=== PATIENT | male | born 1995 ===

== ENCOUNTER 2021-11-01 18:57 | Observation (INO) | payer SELFPAY ==
[2021-11-01] MEDS ORDERED: NITROGLYCERIN 0.4 MG TAB SUBL SL ONE ×2 (20:27→20:57)
[2021-11-01] MEDS ORDERED: ASPIRIN 81 MG TAB CHEW PO ONE (20:54)
[2021-11-01 20:55] LABS: Basophils % (Auto) 0.6 % (0.0-1.8); Eosinophils # (Auto) 0.1 K/mm3 (0.0-0.4); Eosinophils % (Auto) 0.9 % (0.0-4.3); Hematocrit 41.6 % (35.5-45.6); Hemoglobin 14.4 gm/dl (11.8-15.2); Lymphocytes # (Auto) 1.3 K/mm3 (1.2-5.4); Lymphocytes % (Auto) 22.4 % (13.4-35.0); Mean Corpuscular HGB Conc 35 % (32-34); Mean Corpuscular Volume 91 fl (84-94); Monocytes # (Auto) 0.6 K/mm3 (0.0-0.8); Monocytes % (Auto) 9.9 % (0.0-7.3); Platelet Count 198 K/mm3 (140-440); Red Blood Count 4.55 M/mm3 (3.65-5.03); Red Cell Distribution Width 13.6 % (13.2-15.2)
--- NOTE | 2021-11-01 20:59 | XRay Report ---
CHEST 1 VIEW 11/01/2021 8:40 PM INDICATION / CLINICAL INFORMATION: Left chest pain. COMPARISON: None available. FINDINGS: SUPPORT DEVICES: None. HEART / MEDIASTINUM: The heart size and pulmonary vasculature are normal. The aorta is normal in arlene carmel. LUNGS / PLEURA: No significant pulmonary or pleural abnormality. No pneumothorax. ADDITIONAL FINDINGS: No significant additional findings. IMPRESSION: No acute findings. Signer Name: Carlos Solorzano MD Signed: 11/01/2021 8:55 PM Workstation Name: [id number]
[2021-11-01 21:04] LABS: INR 0.93 (0.87-1.13)
[2021-11-01] MEDS ORDERED: MORPHINE 4 MG/1 ML INJ IV ONE (21:04)
[2021-11-01 21:05] LABS: Partial Thromboplastin Time 30.6 Sec. (24.2-36.6)
[2021-11-01] MEDS ORDERED: MORPHINE 4 MG/1 ML INJ ONE (21:06)
[2021-11-01 21:10] LABS: Alanine Aminotransferase 41 units/L (7-56); Albumin 4.3 g/dL (3.9-5); BUN/Creatinine Ratio 10; Blood Urea Nitrogen 12 mg/dL (9-20); Calcium 8.7 mg/dL (8.4-10.2); Hemolysis Index 16
[2021-11-01] MEDS ORDERED: LIDOCAINE (2%) 20 MG/1 ML VIAL 20 ML MDV INFILTRATI ONE (21:10)
[2021-11-01] MEDS ORDERED: NITROGLYCERIN SYRINGE 3 ML ONE (21:10)
[2021-11-01] MEDS ORDERED: HEPARIN/NS 5000 UNIT/500ML 1,000 ML IR ONE (21:10)
[2021-11-01] MEDS ORDERED: HEPARIN 10,000 UNITS/10 ML VIAL ONE (21:10)
[2021-11-01] MEDS ORDERED: VERAPAMIL 5 MG/2 ML INJ ONE (21:19)
[2021-11-01] MEDS ORDERED: SODIUM CHLORIDE 0.9% 1000 ML 1,000 ML ONE (21:25)
[2021-11-01] MEDS ORDERED: MIDAZOLAM 2 MG/2 ML INJ ONE (21:33)
[2021-11-01] MEDS ORDERED: fentaNYL 100 MCG/2 ML INJ ONE (21:33)
[2021-11-01] MEDS ORDERED: ACETAMINOPHEN 325 MG TAB PO PRN (21:44)
[2021-11-01] MEDS ORDERED: traMADol 50 MG TAB PO PRN ×2 (21:44→21:59)
[2021-11-01] MEDS ORDERED: MORPHINE 4 MG/1 ML INJ IV PRN (21:44)
[2021-11-01] MEDS ORDERED: NITROGLYCERIN 0.4 MG TAB SUBL SL PRN (21:44)
[2021-11-01] MEDS ORDERED: SODIUM CHLORIDE 0.9% 1000 ML 1,000 ML IV SCH (21:45)
--- NOTE | 2021-11-01 21:52 | Emergency Department Report ---
HPI - General Chief Complaint: Chest Pain PUI?: No Time Seen by Provider: 11/01/21 20:04 - HPI HPI: 26yo M p/w chest pain. Patient states his chest pain began at 11 AM "after 8 of 3 piece from [facility]." He said within 15 minutes he began having pressure-like left-sided chest pain which initially radiated across to the right side of his chest but subsequently returned back to the left side and has remained there ever since then. Pain is waxing and waning. No aggravators or alleviators. He complains of mild shortness of breath and dizziness. He denies any nausea vomiting fevers or chills. No musculoskeletal strain or trauma to his chest wall. No cough or URI symptoms. No prior history of similar symptoms in the past. He has not taken any medication prior to arrival. Pain currently 8 out of 10. Patient denies any tobacco alcohol or illicit drug usage. ED Past Medical Hx - Past Medical History Previous Medical History?: No - Surgical History Past Surgical History?: No - Social History Smoking Status: Current Every Day Smoker - Medications Home Medications: Home Medications Medication Instructions Recorded Confirmed Last Taken Type Nicotine [Habitrol] 14 mg TD DAILY #30 patch 11/02/21 Unknown Rx Pantoprazole [Protonix TAB] 40 mg PO QDAY #14 tablet 11/02/21 Unknown Rx oxyCODONE /ACETAMINOPHEN [Percocet 1 tab PO BID PRN #10 11/02/21 Unknown Rx 5/325] ED Review of Systems ROS: Stated complaint: CHEST PAIN/FEVER Other details as noted in HPI Comment: All other systems reviewed and negative Physical Exam - Physical Exam Vital Signs: Vital Signs 11/01/21 11/01/21 11/01/21 19:27 20:20 20:30 Temperature 100.5 F H 97.0 F L Pulse Rate 106 H 103 H 103 H Respiratory 18 18 Rate Blood Pressure 129/69 125/78 Blood Pressure 124/70 [Left] O2 Sat by Pulse 96 98 Oximetry 11/01/21 21:00 Temperature Pulse Rate 97 H Respiratory Rate Blood Pressure 125/73 Blood Pressure [Left] O2 Sat by Pulse Oximetry General: Gen: pt is well appearing, mildly uncomfortable appearing, complaining of persistent chest pain, no drooling no stridor no respiratory distress, breathing unlabored, nontoxic-appearing HEENT: Normocephalic atraumatic pupils equally round and reactive to light ex traocular muscles intact sclera anicteric Neck: Full range of motion, no midline spinal tenderness palpation, no JVD, no carotid bruits, no nuchal rigidity CVS: S1-S2 regular rate and rhythm with no gallops rubs or murmurs, chest wall nontender Pulmonary: Clear to auscultation bilaterally, no wheezes rales or rhonchi Abdomen: Soft nondistended nontender no guarding or rebound tenderness, no palpable deformities or step-offs, normal active bowel sounds, no hepatosplenomegaly, no pulsatile masses : Deferred Extremities: No cyanosis no clubbing no edema, intact distal peripheral pulses, Integumentary: Skin normal, no petechia no purpura no abscess no lacerations no evidence of trauma no evidence of infection Neuro: Patient is awake alert and oriented to person place time situation, mentating well, cranial nerves II through XII intact, no focal neurodeficits, sensation grossly tact Psych: Calm cooperative, mood affect normal ED Course Vital Signs 11/01/21 11/01/21 11/01/21 19:27 20:20 20:30 Temperature 100.5 F H 97.0 F L Pulse Rate 106 H 103 H 103 H Respiratory 18 18 Rate Blood Pressure 129/69 125/78 Blood Pressure 124/70 [Left] O2 Sat by Pulse 96 98 Oximetry 11/01/21 21:00 Temperature Pulse Rate 97 H Respiratory Rate Blood Pressure 125/73 Blood Pressure [Left] O2 Sat by Pulse Oximetry - Consultations Consultation #1: 11/11/2021, 7:49 PM: I telephoned Dr. Crabtree, the on-call interventionalists. Patient's HPI, physical exam, and EKG demonstrating solitary ST elevation in V2 with reciprocal depressions in lead III were discussed at length with him. He was informed that the patient is currently in triage but is awaiting to be brought back to the main emergency department. He has confirmed that he has reviewed the gurdeep ent's electrocardiogram independently. He advises serial electrocardiograms, to provide the patient with sublingual nitroglycerin, and to call him back after the patient has been reassessed within the next 10 minutes. If patient's chest pain persist, patient may need to go to the [facility] but per his verbal report, findings on EKG represent likely benign early repolarization 826 PM: Case again reviewed with the risk developer. Repeat EKG obtained and transmitted to Dr. Crabtree. Findings remain persistent but there were no new ST elevations or newly evolving ST depressions on the patient's EKG. The patient has been given sublingual nitroglycerin but he complains of persistent pressure-like left-sided chest pain. Per his verbal report, given that per my report to him the patient is having continued chest pain and is not improved after sublingual nitroglycerin, he will come to the ER emergently. He request that the Channel Specialist be activated. And the patient will undergo cardiac catheterization to rule out acute ST elevation VA. ED Medical Decision Making - Lab Data Result diagrams: 11/01/21 22:55 11/01/21 22:55 - EKG Data Interpretation: other November 01, 2021: EKG from triage interpreted by me at 1938: Ventricular rate 99 bpm. P waves are present and proceed every QRS complex. Intervals normal. Patient has greater than [address] elevation in lead V2 with no other contiguous ST elevations in any other leads. Patient has solitary less than [address] depression in lead III. No ectopic. No arrhythmia. Normal axis. Sinus rhythm. Patient has no prior EKG available for comparison. Repeat EKG obtained at 2021: Ventricular rate 98 bpm. P waves are present in procedure QRS complex. Intervals normal. Patient has greater than [address] elevation in lead V2 with reciprocal ST depressions in lead III. No ectopic. No arrhythmia. Normal axis. Sinus rhythm. EKG is unchanged in morphology when compared to prior - Radiology Data Radiology results: report reviewed - Medical Decision Making This is a 26-year-old male with no significant past medical history per his report who presents for evaluation of persistent left-sided pressure-like chest pain, onset approximate 15 minutes after consuming fried chicken from [facility]. Vital signs stable. Patient is to have solitary ST elevation in lead V2 and reciprocal ST depressions in lead III. Serial EKGs were performed. Case was reviewed at length with on-call risk developer, . Due to the patient's persistent pressure-like chest pain not improve significantly with nitroglycerin and persistent ST elevation on and depression in the forementioned leads above, the patient will be taken to the Channel Specialist by him. The patient was given sublingual nitroglycerin x2, and full dose aspirin. Case reviewed with on-call hospitalist, Dr. Pacheco. The patient will be admitted to the hospital service under his care Critical Care Time: No Critical care attestation.: If time is entered above; I have spent that time in minutes in the direct care of this critically ill patient, excluding procedure time. ED Disposition Clinical Impression: Chest pain, ST elevation, Abnormal EKG Disposition: ADMITTED INPATIENT Is pt being admited?: Yes Does the pt Need Aspirin: Yes Condition: Stable
[2021-11-01] MEDS ORDERED: HYDROcodone/ACETAMINOPHEN 5-325 MG TAB PO PRN (21:59)
--- NOTE | 2021-11-01 22:05 | Consultation ---
History of Present Illness Consult date: 11/01/21 Consult reason: chest pain (Rule out STEMI) History of present illness: 26-year-old male with no significant past medical history came to the emergency room with episode of chest pain that started around 11:00 this morning after he ate fried chicken. It waxes and wanes but never goes away. Associated with some shortness of breath but no nausea or vomiting he never had these episodes before and never had any chest pain or shortness of breath orthopnea or PND. In the emergency room they obtained an EKG which showed ST elevation in V2 with subtle ST depression in inferior leads. Repeat EKG x2 were unchanged and the pain did not get better even with nitro or morphine. His vitals were stable with normal blood pressure and heart rates between 9o to low 100, saturating well on room air Since the pain was not resolving with any medications we decided to take him to the [facility] after discussing with the patient. Past History Past Medical History: No medical history Past Surgical History: No surgical history Social history: , smoking. denies: alcohol abuse, prescription drug abuse, IV drug use Family history: CAD Medications and Allergies Allergies Allergy/AdvReac Type Severity Reaction Status Date / Time Penicillins Allergy Intermediate Rash Verified 11/01/21 21:23 Active Meds: Active Medications Acetaminophen (Acetaminophen 325 Mg Tab) 650 mg PO Q6H PRN PRN Reason: Pain, Mild (1-3) Hydrocodone Bitart/Acetaminophen (Hydrocodone/Acetaminophen 5-325 Mg Tab) 1 each PO Q4H PRN PRN Reason: Pain, Moderate (4-6) Atorvastatin Calcium (Atorvastatin 40 Mg Tab) 40 mg PO QHS RACHEL Sodium Chloride (Nacl 0.9% 1000 Ml) 1,000 mls @ 100 mls/hr IV DIRECT RACHEL Morphine Sulfate (Morphine 4 Mg/1 Ml Inj) 2 mg IV Q5MIN PRN PRN Reason: Chest Pain unrelieved by NTG Nitroglycerin (Nitroglycerin 0.4 Mg Tab Subl) 0.4 mg SL Q5M PRN PRN Reason: Chest Pain Pantoprazole Sodium (Pantoprazole 40 Mg Tab) 40 mg PO QDAY RACHEL Sodium Chloride (Sodium Chloride 0.9% 10 Ml Flush Syringe) 10 ml IV PRN PRN PRN Reason: LINE FLUSH Tramadol HCl (Tramadol 50 Mg Tab) 50 mg PO Q6H PRN PRN Reason: Pain, Moderate (4-6) Tramadol HCl (Tramadol 50 Mg Tab) 50 mg PO Q4H PRN PRN Reason: Pain, Mild (1-3) Review of Systems Constitutional: no fever, no chills Ears, nose, mouth and throat: no ear pain Cardiovascular: chest pain, no orthopnea, no palpitations, no edema, no syncope, no lightheadedness, no dyspnea on exertion, no paroxysmal nocturnal dyspnea, no claudication Respiratory: shortness of breath, no cough, no cough with sputum, no excessive sputum Gastrointestinal: no abdominal pain, no nausea, no vomiting, no diarrhea Genitourinary Male: no dysuria Musculoskeletal: no neck pain Integumentary: no rash, no pruritis Neurological: no head injury Psychiatric: no depression Endocrine: no palpatations Hematologic/Lymphatic: no easy bruising Physical Examination Vital Signs Temp Pulse Resp BP Pulse Ox 100.5 F H 106 H 18 129/69 96 11/01/21 19:27 11/01/21 19:27 11/01/21 19:27 11/01/21 19:27 11/01/21 19:27 General appearance: mild distress HEENT: Positive: Normocephaly, Mucus Membranes Moist Neck: Positive: neck supple Cardiac: Positive: Reg Rate and Rhythm, S1/S2. Negative: S3 Lungs: Positive: Normal Exam, clear to auscultation Neuro: Positive: Grossly Intact Abdomen: Positive: Soft Skin: Negative: Rash (Tattoos present) Extremities: Present: normal Results 11/01/21 20:29 11/01/21 20:29 Cardiac Enzymes 11/01/21 Range/Units 20:29 AST 36 (5-40) units/L Coagulation 11/01/21 Range/Units 20:29 PT 13.5 (12.2-14.9) Sec. INR 0.93 (0.87-1.13) APTT 30.6 (24.2-36.6) Sec. CBC 11/01/21 Range/Units 20:29 WBC 5.8 (4.5-11.0) K/mm3 RBC 4.55 (3.65-5.03) M/mm3 Hgb 14.4 (11.8-15.2) gm/dl Hct 41.6 (35.5-45.6) % Plt Count 198 (140-440) K/mm3 Lymph # (Auto) 1.3 (1.2-5.4) K/mm3 [place] # (Auto) 0.6 (0.0-0.8) K/mm3 Eos # (Auto) 0.1 (0.0-0.4) K/mm3 Baso # (Auto) 0.0 (0.0-0.1) K/mm3 Comprehensive Metabolic Panel 11/01/21 Range/Units 20:29 Sodium 133 L (137-145) mmol/L Potassium 3.6 (3.6-5.0) mmol/L Chloride 98.2 (98-107) mmol/L Carbon Dioxide 26 (22-30) mmol/L BUN 12 (9-20) mg/dL Creatinine 1.2 (0.8-1.3) mg/dL Glucose 105 H (75-100) mg/dL Calcium 8.7 (8.4-10.2) mg/dL AST 36 (5-40) units/L ALT 41 (7-56) units/L Alkaline Phosphatase 65 (35-129) units/L Total Protein 6.0 L (6.3-8.2) g/dL Albumin 4.3 (3.9-5) g/dL EKG interpretations - Telemetry EKG Rhythm: Sinus Rhythm (With ST elevation in V2 with reciprocal subtle ST depression inferior leads) Assessment and Plan - Patient Problems (1) Chest pain Current Visit: Yes Status: Acute Plan to address problem: Due to the unrelenting nature of the pain despite medications and EKG changes even though does not meet the criteria for a STEMI we took him to the cardiac [facility] after discussing risk benefits of the procedure and alternatives. Coronary angiograms were normal. LV ejection fraction was normal. LVEDP was 13. Chest pain is likely noncardiac will admit for observation and pain control with plan to discharge tomorrow morning.
--- NOTE | 2021-11-01 22:13 | History and Physical Report ---
History of Present Illness Date of examination: 11/01/21 Date of admission: 11/01/21 Chief complaint: Chest pain History of present illness: 26-year-old male with no significant past medical history was brought to the emergency room because of chest pain that started around 11:00 this morning after he ate fried chicken. It waxes and wanes but never goes away. Associated with some shortness of breath but no nausea or vomiting he never had these episodes before and never had any chest pain or shortness of breath orthopnea or PND. In the emergency room they obtained an EKG which showed ST elevation in V2 with subtle ST depression in inferior leads. Repeat EKG x2 were unchanged and the pain did not get better even with nitro or morphine. His vitals were stable with normal blood pressure and heart rates between 9o to low 100. Subsequently Case was discussed with on-call interventional radiology Dr. Garza and patient was taken to the Production Super[facility] and patient is status post cath which shows normal coronaries. Past History Past Medical History: No medical history Past Surgical History: No surgical history Social history: , smoking. denies: alcohol abuse, prescription drug abuse, IV drug use Family history: CAD Medications and Allergies Allergies Allergy/AdvReac Type Severity Reaction Status Date / Time Penicillins Allergy Intermediate Rash Verified 11/01/21 21:23 Active Meds: Active Medications Acetaminophen (Acetaminophen 325 Mg Tab) 650 mg PO Q6H PRN PRN Reason: Pain, Mild (1-3) Hydrocodone Bitart/Acetaminophen (Hydrocodone/Acetaminophen 5-325 Mg Tab) 1 each PO Q4H PRN PRN Reason: Pain, Moderate (4-6) Atorvastatin Calcium (Atorvastatin 40 Mg Tab) 40 mg PO QHS RACHEL Sodium Chloride (Nacl 0.9% 1000 Ml) 1,000 mls @ 100 mls/hr IV DIRECT RACHEL Morphine Sulfate (Morphine 4 Mg/1 Ml Inj) 2 mg IV Q5MIN PRN PRN Reason: Chest Pain unrelieved by NTG Nitroglycerin (Nitroglycerin 0.4 Mg Tab Subl) 0.4 mg SL Q5M PRN PRN Reason: Chest Pain Pantoprazole Sodium (Pantoprazole 40 Mg Tab) 40 mg PO QDAY RACHEL Sodium Chloride (Sodium Chloride 0.9% 10 Ml Flush Syringe) 10 ml IV PRN PRN PRN Reason: LINE FLUSH Tramadol HCl (Tramadol 50 Mg Tab) 50 mg PO Q4H PRN PRN Reason: Pain, Mild (1-3) Review of Systems All systems: negative Cardiovascular: chest pain, shortness of breath Exam - Constitutional Vitals: Temp Pulse Resp BP Pulse Ox 97.0 F L 97 H 18 125/73 98 11/01/21 20:20 11/01/21 21:00 11/01/21 20:20 11/01/21 21:00 11/01/21 20:20 General appearance: Present: no acute distress, well-nourished - EENT Eyes: Present: PERRL ENT: hearing intact, clear oral mucosa - Neck Neck: Present: supple, normal ROM - Respiratory Respiratory effort: normal Respiratory: bilateral: CTA - Cardiovascular Heart Sounds: Present: S1 & S2. Absent: rub, click - Extremities Extremities: pulses symmetrical, No edema Peripheral Pulses: within normal limits - Abdominal General gastrointestinal: Present: soft, non-tender, non-distended, normal bowel sounds Male genitourinary: Present: normal - Integumentary Integumentary: Present: clear, warm, dry - Musculoskeletal Musculoskeletal: gait normal, strength equal bilaterally - Psychiatric Psychiatric: appropriate mood/affect, intact judgment & insight - Neurologic Neurologic: CNII-XII intact, moves all extremities HEART Score - HEART Score Age: < 45 Troponin: Troponin T < 0.010 ng/mL (0.00-0.029) 11/01/21 20:29 Results - Labs CBC & Chem 7: 11/01/21 20:29 11/01/21 20:29 Labs: Laboratory Last Values WBC 5.8 K/mm3 (4.5-11.0) 11/01/21 20: RBC 4.55 M/mm3 (3.65-5.03) 11/01/21 20:29 Hgb 14.4 gm/dl (11.8-15.2) 11/01/21 20:29 Hct 41.6 % (35.5-45.6) 11/01/21 20: MCV 91 fl (84-94) 11/01/21 20:29 MCH 32 pg (28-32) 11/01/21 20: MCHC 35 % (32-34) H 11/01/21 20: RDW 13.6 % (13.2-15.2) 11/01/21 20:29 Plt Count 198 K/mm3 (140-440) 11/01/21 20: Lymph % (Auto) 22.4 % (13.4-35.0) 11/01/21: [place] % (Auto) 9.9 % (0.0-7.3) H 11/01/21: Eos % (Auto) 0.9 % (0.0-4.3) 11/01/21: Baso % (Auto) 0.6 % (0.0-1.8) 11/01/21: Lymph # (Auto) 1.3 K/mm3 (1.2-5.4) 11/01/21: [place] # (Auto) 0.6 K/mm3 (0.0-0.8) 11/01/21: Eos # (Auto) 0.1 K/mm3 (0.0-0.4) 11/01/21: Baso # (Auto) 0.0 K/mm3 (0.0-0.1) 11/01/21: Seg Neutrophils % 66.2 % (40.0-70.0) 11/01/21: Seg Neutrophils # 3.8 K/mm3 (1.8-7.7) 11/01/21: PT 13.5 Sec. (12.2-14.9) 11/01/21: INR 0.93 (0.87-1.13) 11/01/21: APTT 30.6 Sec. (24.2-36.6) 11/01/21 20: Sodium 133 mmol/L (137-145) L 11/01/21 20: Potassium 3.6 mmol/L (3.6-5.0) 11/01/21: Chloride 98.2 mmol/L (98-107) 11/01/21: Carbon Dioxide 26 mmol/L (22-30) 11/01/21 20: Anion Gap 12 mmol/L 11/01/21: BUN 12 mg/dL (9-20) 11/01/21: Creatinine 1.2 mg/dL (0.8-1.3) 09/08/22 20:29 Estimated GFR > 60 ml/min 11/01/21 20:29 BUN/Creatinine Ratio 10 % 11/01/21 20:29 Glucose 105 mg/dL (75-100) H 11/01/21 20:29 Calcium 8.7 mg/dL (8.4-10.2) 11/01/21 20:29 Total Bilirubin 0.40 mg/dL (0.1-1.2) 11/01/21 20:29 AST 36 units/L (5-40) 11/01/21 20:29 ALT 41 units/L (7-56) 11/01/21 20:29 Alkaline Phosphatase 65 units/L (35-129) 11/01/21 20:29 Troponin T < 0.010 ng/mL (0.00-0.029) 11/01/21 20:29 NT-Pro-B Natriuret Pep 34.22 pg/mL (0-450) 11/01/21 20:29 Total Protein 6.0 g/dL (6.3-8.2) L 11/01/21 20:29 Albumin 4.3 g/dL (3.9-5) 11/01/21 20:29 Albumin/Globulin Ratio 2.5 % 11/01/21 20:29 - Imaging and Cardiology Chest x-ray: report reviewed Assessment and Plan VTE prophylaxis?: Chemical Plan of care discussed with patient/family: Yes - Patient Problems (1) ACS (acute coronary syndrome) Status: Acute Plan to address problem: Admit the patient to the medical telemetry. Patient is status post cardiac cath with normal coronary. We will hold the aspirin for next 24 hours. Lipitor 40 mg p.o. daily. Nitroglycerin as needed. Cardiology evaluation (2) Drug abuse Status: Acute Plan to address problem: Will debt management counselor regarding quit taking drugs. Outpatient follow-up with addiction clinic (3) Tobacco abuse Status: Acute Plan to address problem: Patient counseled regarding quitting smoking. We will put the patient on nicotine patch (4) DVT prophylaxis Status: Acute Plan to address problem: SCD for DVT prophylaxis because patient is a status post cardiac cath. Protonix 40 mg p.o. daily for GI prophylaxis. Patient is a full code
[2021-11-01 23:12] LABS: Basophils % (Auto) 0.6 % (0.0-1.8); Eosinophils # (Auto) 0.1 K/mm3 (0.0-0.4); Hematocrit 38.5 % (35.5-45.6); Hemoglobin 13.3 gm/dl (11.8-15.2); Lymphocytes # (Auto) 1.6 K/mm3 (1.2-5.4); Lymphocytes % (Auto) 29.2 % (13.4-35.0); Mean Corpuscular HGB Conc 35 % (32-34); Mean Corpuscular Volume 92 fl (84-94); Monocytes # (Auto) 0.6 K/mm3 (0.0-0.8); Monocytes % (Auto) 10.4 % (0.0-7.3); Platelet Count 197 K/mm3 (140-440); Red Blood Count 4.18 M/mm3 (3.65-5.03); Red Cell Distribution Width 13.3 % (13.2-15.2)
[2021-11-01 23:38] LABS: BUN/Creatinine Ratio 11; Blood Urea Nitrogen 11 mg/dL (9-20); Hemolysis Index 20
--- NOTE | 2021-11-02 09:03 | Progress Note ---
Assessment and Plan Assessment and plan: (1) ACS (acute coronary syndrome) Status: Acute Plan to address problem: Admit the patient to the medical telemetry. Patient is status post cardiac cath with normal coronary. We will hold the aspirin for next 24 hours. Lipitor 40 mg p.o. daily. Nitroglycerin as needed. Cardiology evaluation (2) Drug abuse Status: Acute Plan to address problem: Will school counsellor regarding quit taking drugs. Outpatient follow-up with addiction clinic (3) Tobacco abuse Status: Acute Plan to address problem: Patient counseled regarding quitting smoking. We will put the patient on nicotine patch (4) DVT prophylaxis Status: Acute Plan to address problem: SCD for DVT prophylaxis because patient is a status post cardiac cath. Protonix 40 mg p.o. daily for GI prophylaxis. Patient is a full code Hospitalist Physical - Constitutional Vitals: Temp Pulse Resp BP Pulse Ox 98.7 F 86 18 118/76 97 11/02/21 07:59 11/02/21 07:59 11/02/21 07:59 11/02/21 07:59 11/02/21 07:59 General appearance: Present: no acute distress, well-nourished HEART Score - HEART Score Age: < 45 Troponin: Troponin T < 0.010 ng/mL (0.00-0.029) 11/02/21 04:49 Results - Labs CBC & Chem 7: 11/01/21 22:55 11/01/21 22:55 Labs: Laboratory Last Values WBC 5.5 K/mm3 (4.5-11.0) 11/01/21 22:55 RBC 4.18 M/mm3 (3.65-5.03) 11/01/21 22:55 Hgb 13.3 gm/dl (11.8-15.2) 11/01/21 22:55 Hct 38.5 % (35.5-45.6) 11/01/21 22:55 MCV 92 fl (84-94) 11/01/21 22:55 MCH 32 pg (28-32) 11/01/21 22:55 MCHC 35 % (32-34) H 11/01/21 22:55 RDW 13.3 % (13.2-15.2) 11/01/21 22:55 Plt Count 197 K/mm3 (140-440) 11/01/21 22:55 Lymph % (Auto) 29.2 % (13.4-35.0) 11/01/21 22:55 [place] % (Auto) 10.4 % (0.0-7.3) H 11/01/21 22:55 Eos % (Auto) 1.0 % (0.0-4.3) 11/01/21 22:55 Baso % (Auto) 0.6 % (0.0-1.8) 11/01/21 22:55 Lymph # (Auto) 1.6 K/mm3 (1.2-5.4) 11/01/21 22:55 [place] # (Auto) 0.6 K/mm3 (0.0-0.8) 11/01/21 22:55 Eos # (Auto) 0.1 K/mm3 (0.0-0.4) 11/01/21 22:55 Baso # (Auto) 0.0 K/mm3 (0.0-0.1) 11/01/21 22:55 Seg Neutrophils % 58.8 % (40.0-70.0) 11/01/21 22:55 Seg Neutrophils # 3.2 K/mm3 (1.8-7.7) 11/01/21 22:55 PT 13.5 Sec. (12.2-14.9) 11/01/21 20:29 INR 0.93 (0.87-1.13) 11/01/21 20:29 APTT 30.6 Sec. (24.2-36.6) 11/01/21 20:29 Sodium 137 mmol/L (137-145) 11/01/21 22:55 Potassium 3.5 mmol/L (3.6-5.0) L 11/01/21 22:55 Chloride 100.6 mmol/L (98-107) 11/01/21 22:55 Carbon Dioxide 25 mmol/L (22-30) 11/01/21 22:55 Anion Gap 15 mmol/L 11/01/21 22:55 BUN 11 mg/dL (9-20) 11/01/21 22:55 Creatinine 1.0 mg/dL (0.8-1.3) 11/01/21 22:55 Estimated GFR > 60 ml/min 11/01/21 22:55 BUN/Creatinine Ratio 11 % 11/01/21 22:55 Glucose 97 mg/dL (75-100) 11/01/21 22:55 Calcium 8.0 mg/dL (8.4-10.2) L 11/01/21 22:55 Total Bilirubin 0.40 mg/dL (0.1-1.2) 11/01/21 20:29 AST 36 units/L (5-40) 11/01/21 20:29 ALT 41 units/L (7-56) 11/01/21 20:29 Alkaline Phosphatase 65 units/L (35-129) 11/01/21 20:29 Troponin T < 0.010 ng/mL (0.00-0.029) 11/02/21 04:49 NT-Pro-B Natriuret Pep 34.22 pg/mL (0-450) 11/01/21 20:29 Total Protein 6.0 g/dL (6.3-8.2) L 11/01/21 20:29 Albumin 4.3 g/dL (3.9-5) 11/01/21 20:29 Albumin/Globulin Ratio 2.5 % 11/01/21 20:29 Active Medications - Current Medications Current Medications: Generic Name Dose Route Start Last Admin Trade Name Freq PRN Reason Stop Dose Admin Acetaminophen 650 mg 11/01/21 21:44 Acetaminophen 325 Mg Tab PO Q6H PRN Pain, Mild (1-3) Hydrocodone Bitart/Acetaminophen 1 each 11/01/21 21:59 Hydrocodone/Acetaminophen 5-325 Mg Tab PO Q4H PRN Pain, Moderate (4-6) Atorvastatin Calcium 40 mg 11/01/21 22:00 11/01/21 23:15 Atorvastatin 40 Mg Tab PO 40 mg QHS RACHEL Administration Sodium Chloride 1,000 mls @ 100 mls/hr 11/01/21 21:45 11/02/21 05:01 Nacl 0.9% 1000 Ml IV 100 mls/hr DIRECT RACHEL Administration Morphine Sulfate 2 mg 11/01/21 21:44 11/02/21 08:31 Morphine 4 Mg/1 Ml Inj IV 2 mg Q5MIN PRN Administration Chest Pain unrelieved by NTG Nitroglycerin 0.4 mg 11/01/21 21:44 Nitroglycerin 0.4 Mg Tab Subl SL Q5M PRN Chest Pain Pantoprazole Sodium 40 mg 11/02/21 10:00 Pantoprazole 40 Mg Tab PO QDAY RACHEL Sodium Chloride 10 ml 11/01/21 21:44 Sodium Chloride 0.9% 10 Ml Flush Syringe IV PRN PRN LINE FLUSH Tramadol HCl 50 mg 11/01/21 21:59 Tramadol 50 Mg Tab PO Q4H PRN Pain, Mild (1-3)
[2021-11-02] MEDS ORDERED: PANTOPRAZOLE 40 MG TAB PO SCH (10:00)
--- NOTE | 2021-11-02 10:55 | Electrocardiograph Report ---
[facility] Test Date: 2021-11-01 Test Time: 19:32:22 Pat Name: VERONICA BARNHART Department: Room: A459 1 Gender: M Pressure Supervisor: MARIO : 1995 Requested By: RACHELLE FLEMING Order Number: [id number] Reading MD: Bhupendra Nayak Measurements Intervals [place] Rate: 98 P: 43 VA: 189 QRS: 45 QRSD: 98 T: 17 QT: 341 QTc: 436 Interpretive Statements Sinus rhythm Borderline ST elevation, anterior leads No previous ECG available for comparison Electronically Signed On 11-02-2021 10:55:37 EDT by Bhupendra Nayak
--- NOTE | 2021-11-02 10:56 | Electrocardiograph Report ---
[facility] Test Date: 2021-11-01 Test Time: 20:20:27 Pat Name: VERONICA BARNHART Department: Room: A459 1 Gender: M Care Information Associate: ALIVIA : 1995 Requested By: JHONY KRAUSE Order Number: [id number] Reading MD: Bhupendra Nayak Measurements Intervals [place] Rate: 98 P: 37 [place]: 184 QRS: 24 QRSD: 98 T: 15 QT: 336 QTc: 430 Interpretive Statements Sinus rhythm Borderline ST elevation, anterior leads Compared to ECG 11/01/2021 19:32:22 No significant changes Electronically Signed On 11-02-2021 10:55:47 EDT by Bhupendra Nayak
--- NOTE | 2021-11-02 10:56 | Electrocardiograph Report ---
[facility] Test Date: 2021-11-01 Test Time: 21:01:04 Pat Name: VERONICA BARNHART Department: Room: A459 1 Gender: M Veneer Drier: ALIVIA : 1995 Requested By: JHONY KRAUSE Order Number: [id number] Reading MD: Bhupendra Nayak Measurements Intervals [place] Rate: 97 P: 33 [place]: 175 QRS: 22 QRSD: 94 T: 13 QT: 316 QTc: 401 Interpretive Statements Sinus rhythm Borderline ST elevation, anterior leads Compared to ECG 11/01/2021 19:32:22 No significant changes Electronically Signed On 11-02-2021 10:56:04 EDT by Bhupendra Nayak
[2021-11-02 12:06] VITALS: BP 120/76
--- NOTE | 2021-11-02 12:16 | Cat Scan Report ---
CTA CHEST WITH CONTRAST INDICATION / CLINICAL INFORMATION: Shortness of breath. TECHNIQUE: Axial CT images were obtained through the chest after injection of Omnipaque 350, 100 cc I V contrast. 3 plane MIP and/or 3D reconstructions were produced. All CT scans at this location are pe rformed using CT dose reduction for ALARA by means of automated exposure control. COMPARISON: None available. FINDINGS: PULMONARY ARTERIES: No large pulmonary emboli. Evaluation limited by motion artifact. THORACIC AORTA: No significant abnormality. HEART: No significant abnormality. CORONARY ARTERY CALCIFICATION: None. MEDIASTINUM / CHRISTIANO: No significant abnormality. PLEURA: No pleural effusion. No pneumothorax. LUNGS: No acute air space or interstitial disease. ADDITIONAL FINDINGS: None. UPPER ABDOMEN: No acute findings. SKELETAL STRUCTURES: No significant osseous abnormality. IMPRESSION: 1. No large pulmonary emboli. Evaluation limited by motion artifact. 2. Negative for pneumonia. Signer Name: Abdiaziz Chávez MD Signed: 11/02/2021 12:12 PM Workstation Name: [employer]
--- NOTE | 2021-11-02 12:33 | Discharge Summary ---
Providers - Providers Date of Admission: 11/01/21 21:44 Date of discharge: 11/02/21 Attending physician: BESSY BACH 11/01/21 Consult to Cardiac Rehabilitation [CONS] Routine Reason For Exam: Phase I 11/01/21 21:44 Consult to Cardiology [CONS] Routine Consulting Provider: DEEPA MICHAELS Reason For Exam: stemi 11/01/21 21:48 Consult to Physician [CONS] Stat Comment: Consulting Provider: DEEPA MICHAELS Physician Instructions: Reason For Exam: st elevations v2, st depression in III; /ro stemi 11/01/21 21:59 Consult to Cardiac Rehabilitation [CONS] Routine Reason For Exam: Cardiac Rehab Evaluation Primary care physician: KEON NAVARRO Hospitalization Reason for admission: Chest pain/acute coronary syndrome Condition: Stable Pertinent studies: Chest x-ray; no acute abnormality noted CTA chest; no large pulmonary emboli evaluation limited by motion artifact negative for pneumonia Procedures: Coronary angiogram 11/01/2021 Normal coronary angiogram LV ejection fraction normal LV end-diastolic pressure was 13 chest pain likely noncardiac Hospital course: 26-year-old male patient with no significant past medical history was admitted through emergency room with chest pain of 1 day duration patient complains of persistent chest pain initial evaluation in the emergency room with serial cardiac enzymes x2 negative EKG borderline ST elevation in anterior leads read by macroeconomics professor Patient was evaluated by macroeconomics professor in the ED and patient underwent emergency left heart catheterization which was negative for any coronary artery disease, LV function is within normal limits Patient also underwent CTA chest to rule out PE due to pleuritic chest pain ,test was negative for PE and negative for pneumonia Patient's chest pain is probably due to noncardiac causes like gastroesophageal reflux disease advised Protonix as well as musculoskeletal chest wall pain, advised Percocet as needed Today patient is comfortable no new complaints, vital signs stable, physical examination prior to discharge is unremarkable Patient strongly advised smoking cessation and nicotine patch as needed patient is hemodynamically and clinically stable at discharge and follow-up with primary care physician .and macroeconomics professor Dr. Michaels per schedule. Patient is stable at discharge Discharge diagnosis :-- chest pain /ACS (acute coronary syndrome) Serial cardiac enzymes x2 negative, EKG nonspecific borderline ST elevation Left heart catheterization normal coronaries. Normal ejection fraction --gastroesophageal reflux disease; Probably the cause of noncardiac chest pain in this patient IV Protonix, advised to quit tobacco use --Musculoskeletal pain ; Probably the cause of noncardiac chest pain, pain medications And supportive care -- Ongoing tobacco abuse; Smoking cessation counseling. Nicotine patch as needed This and consequences and long-term sequelae of smoking Discussed with the patient and strongly advised to quit and use nicotine patch as needed -- DVT prophylaxis Subcu Lovenox Today patient is comfortable no new complaints vital signs stable physical examination prior to discharge is unremarkable Cleared by cardiology for discharge and follow-up per schedule Stable at discharge Disposition: 01 HOME / SELF CARE / HOMELESS Final Discharge Diagnosis (Prints w/discharge instructions): Chest pain /acute coronary syndrome;. Negative cardiac cath. Gastroesophageal reflux disease/probably the cause of atypical chest pain. Musculoskeletal pain. Ongoing tobacco use/smoking cessation advised Time spent for discharge: 35 minutes Core Measure Documentation - Palliative Care Palliative Care/ Comfort Measures: Not Applicable - Core Measures Any of the following diagnoses?: none Exam - Constitutional Vitals: Temp Pulse Resp BP Pulse Ox 98.9 F 91 H 18 120/76 99 11/02/21 11:24 11/02/21 11:24 11/02/21 11:24 11/02/21 11:24 11/02/21 11:24 General appearance: Present: no acute distress, well-nourished - EENT Eyes: Present: PERRL, EOM intact - Neck Neck: Present: supple - Respiratory Respiratory effort: normal Respiratory: bilateral: diminished, negative: rales, rhonchi, wheezing - Cardiovascular Rhythm: regular Heart Sounds: Present: S1 & S2 - Extremities Extremities: no ischemia, No edema - Abdominal General gastrointestinal: Present: soft, non-tender, non-distended, normal bowel sounds - Integumentary Integumentary: Present: clear, warm - Musculoskeletal Musculoskeletal: strength equal bilaterally - Psychiatric Psychiatric: appropriate mood/affect, cooperative - Neurologic Neurologic: moves all extremities Plan Activity: no restrictions Diet: regular Special Instructions: smoking cessation Additional Instructions: Your heart cath test is normal. CT chest ; no abnormality noted , no pulmonary embolism. Your chest pain is probably due to acidity or musculoskeletal pain. Advised Protonix, pain medications, ov [id number] Tylenol. if you have worsening symptoms contact MD or go to the nearest emergency room as needed. Advised to see private macroeconomics professor in 1 to 2 weeks. Smoking cessation advised, recommend nicotine patch if needed Follow up with: KEON NAVARRO MD [Primary Care Provider] - 7 Days DEEPA MICHAELS MD [Staff Physician] - 14 Days Forms: Work/School Release Form Prescriptions: Nicotine [Habitrol] 14 mg TD DAILY #30 patch oxyCODONE /ACETAMINOPHEN [Percocet 5/325] 1 tab PO BID PRN #10 PRN Reason: Pain , Severe (7-10) Pantoprazole [Protonix TAB] 40 mg PO QDAY #14 tablet
--- NOTE | 2021-11-02 13:46 | Progress Note ---
Assessment and Plan - Patient Problems (1) Chest pain Current Visit: Yes Status: Acute Plan to address problem: Chest pain with nonspecific ECG findings J-point elevation localized to lead aVL, V1 and V2. Angiographically normal coronary arteries and normal left ventricular systolic function on cardiac catheterization. No post-cath complications, right radial cath site is well-healed, normal radial pulses. Due to pleuritic character of chest pain, I have also ordered a CT angiogram of the chest PE protocol, and defer to internal medicine for continued and further work-up of noncardiac chest pain. We will sign off, please call if any further cardiac issues. Subjective Date of service: 11/02/21 Principal diagnosis: Chest pain Interval history: Patient was admitted during the night with atypical chest pain. The ECG showed J-point elevation localized to leads aVL, V1 and V2. He was taken emergently to the cardiac catheterization laboratory where they found angiographically normal coronary arteries and normal left ventricular systolic function. The patient's chest pain is improved today, described as pleuritic left-sided chest pain localized to the left lower rib cage. I have ordered a CT angiogram of the chest, PE protocol. Objective Vital Signs Temp Pulse Resp BP BP Pulse Ox 11/02/21 11:24 98.9 F 91 H 18 120/76 99 11/02/21 11:00 97 11/02/21 07:59 98.7 F 86 18 118/76 97 11/02/21 07:00 88 11/02/21 04:35 97 H 127/78 91 11/02/21 04:00 99.9 F H 93 H 18 127/78 98 11/02/21 01:30 98.2 F 76 18 114/62 99 11/02/21 00:35 98.0 F 84 18 112/65 99 11/01/21 23:32 97.8 F 79 18 123/77 94 11/01/21 23:13 97 11/01/21 23:08 86 11/01/21 22:40 98.1 F 86 18 119/70 11/01/21 21:00 97 H 125/73 11/01/21 20:30 103 H 125/78 11/01/21 20:20 97.0 F L 103 H 18 124/70 98 11/01/21 19:27 100.5 F H 106 H 18 129/69 96 - Physical Examination General: No Apparent Distress HEENT: Positive: Normocephaly, Mucus Membranes Moist Neck: Positive: neck supple Cardiac: Positive: Reg Rate and Rhythm Lungs: Positive: Decreased Breath Sounds Neuro: Positive: Grossly Intact Abdomen: Positive: Soft Skin: Negative: Rash (Tattoos present) Extremities: Absent: edema - Labs and Meds Cardiac Enzymes 11/01/21 Range/Units 20:29 AST 36 (5-40) units/L Coagulation 11/01/21 Range/Units 20:29 PT 13.5 (12.2-14.9) Sec. INR 0.93 (0.87-1.13) APTT 30.6 (24.2-36.6) Sec. CBC 11/01/21 11/01/21 Range/Units 20:29 22:55 WBC 5.8 5.5 (4.5-11.0) K/mm3 RBC 4.55 4.18 (3.65-5.03) M/mm3 Hgb 14.4 13.3 (11.8-15.2) gm/dl Hct 41.6 38.5 (35.5-45.6) % Plt Count 198 197 (140-440) K/mm3 Lymph # (Auto) 1.3 1.6 (1.2-5.4) K/mm3 [place] # (Auto) 0.6 0.6 (0.0-0.8) K/mm3 Eos # (Auto) 0.1 0.1 (0.0-0.4) K/mm3 Baso # (Auto) 0.0 0.0 (0.0-0.1) K/mm3 Comprehensive Metabolic Panel 11/01/21 11/01/21 Range/Units 20:29 22:55 Sodium 133 L 137 (137-145) mmol/L Potassium 3.6 3.5 L (3.6-5.0) mmol/L Chloride 98.2 100.6 (98-107) mmol/L Carbon Dioxide 26 25 (22-30) mmol/L BUN 12 11 (9-20) mg/dL Creatinine 1.2 1.0 (0.8-1.3) mg/dL Glucose 105 H 97 (75-100) mg/dL Calcium 8.7 8.0 L (8.4-10.2) mg/dL AST 36 (5-40) units/L ALT 41 (7-56) units/L Alkaline Phosphatase 65 (35-129) units/L Total Protein 6.0 L (6.3-8.2) g/dL Albumin 4.3 (3.9-5) g/dL
--- NOTE | 2021-11-15 14:58 | Cardiac Catherization Report ---
DATE OF PROCEDURE: 11/01/2021 PROCEDURES PERFORMED: 1. Left heart catheterization. 2. Selective right and left coronary angiogram. 3. Left ventriculography. PREOPERATIVE DIAGNOSIS: ST elevation myocardial infarction. POSTOPERATIVE DIAGNOSIS: Normal coronary angiogram. DESCRIPTION OF PROCEDURE: An Levy test was used to document patency of the ulnar artery. After obtaining consent, the patient was draped using a sterile fashion. Moderate sedation was administered using intravenous Versed and fentanyl. Lidocaine was used for local anesthesia. Micropuncture needle was used to gain access into the right radial artery. A 6-[place] slender sheath was inserted into the right radial artery. Standard cocktail with verapamil 2.5 mg was inserted in the sheath. A [place] catheter was used to selectively engage the left coronary artery, the right coronary artery, left heart cath and left ventriculogram. Hemostasis was achieved at the end of the procedure using TR Band. BLOOD LOSS: Minimal. SEDATION: Moderate sedation was achieved with Versed and fentanyl. COMPLICATIONS: None. HEMODYNAMICS: 1. The patient's aortic pressure was 120/80. 2. The patient's LV systolic pressure was 120. 3. The patient's LV end-diastolic pressure was 13. CORONARY ANATOMY: 1. Left main was normal. 2. Left anterior descending was angiographically normal. 3. Left circumflex artery was angiographically normal. 4. Right coronary artery was angiographically normal. IMPRESSION: 1. Angiographically normal coronary arteries. 2. Normal left ventricular systolic function. RECOMMENDATION: 1. Aggressive risk factor modification. 2. Routine radial artery sheath care. TID: [id number] RECEIPT: [id number] /ANNALISA/BLANCA STALLINGS
== END 2021-11-02 15:26 | disposition home or self-care (01) ==
LOC: ED 18:57 → INTOOBSV 21:44 → CC1 21:44 → 4A 22:12
PROVIDERS: ADMIT Hospitalist; ATTEND Internal Medicine
DX: I24.9 Acute ischemic heart disease, unspecified (principal); R07.89 Other chest pain; R94.31 Abnormal electrocardiogram [ECG] [EKG]; K21.9 Gastro-esophageal reflux disease without esophagitis; M79.18 Myalgia, other site; F17.210 Nicotine dependence, cigarettes, uncomplicated; F19.10 Other psychoactive substance abuse, uncomplicated; Z79.899 Other long term (current) drug therapy; Z98.890 Other specified postprocedural states
CPT/HCPCS: 36415; 71045; 71275; 80053; 83880; 84484; 85025; 85610; 85730; 93005; 93458; 96374; 96376; 99285; 99406; C1887; C1894; G0378; J1644; J1815; J2250; J2270; J3010; J3490; J7030; Q9967; 80048